=== PATIENT | male | born 1980 | race Caucasian/White ===

== ENCOUNTER 2024-04-01 14:20 | Outpatient (AMB) | payer OTHER, SELFPAY ==
--- NOTE | 2024-04-01 14:21 | A.OFFPC_ITS ---
Vital Signs 04/01/24 14:25 Height 5 ft 7 in Weight 137 lb 2 oz BMI 21.5 BP 100/62 Blood Pressure Location Lt brachial Position Sitting Pulse 63 Pulse Source Pulse Oximeter Pulse Oximetry (%) 94 Oxygen Delivery Method Room Air Intake Visit Reasons: [employer]ATH[employer]ER, requests counciling Intake Note: Patient is a new patient here to establish care for Anxiety, Depression, Insomnia, Knee pain, left hip pain, possible cardiac issue, right foot pain . Transferring care from Dr Ackerman ([facility]). Medical records have been requested and have received. Pathology Manager Required: No Inclusion Special Educator: Not Required per policy Accompanied by: Self / Same As Patient Allergies No Known Allergies Allergy (Verified 04/01/24 14:24) Tobacco use date assessed: 04/01/24 Dental Screening Dental Screen Date: 04/01/24 Did you have a dental visit in the last 12 months?: Yes Did you have a dental problem in the last 6 months where you did not have access to dental care?: No Was dental information given to patient?: Patient has dentist HPI [employer], requests counciling HPI Details 43 yr old male presents to the office to establish his care. He comes alone. Patient gives history of substance use disorder. He has been abusing benzo's, cocaine and other drugs from the street. Was in a rehab ([facility]) and was removed due to non compliance. Continues to be abusing drugs but now willing to seek help. Gives history of alcohol abuse also. Patient reports he has severe insomnia which often triggers the other responses. In addition patient is requesting testing for STI. Has had multiple partners. He has spider veins on his right upper leg that may need treatment. [facility] Medical History Endogenous depression Substance use disorder Onychomycosis Benzodiazepine dependence Benzodiazepine withdrawal Boil Opioid withdrawal Opioid dependence Nicotine dependence Anxiety and depression Cocaine use Anemia Insomnia Marijuana use Alcohol withdrawal seizure Alcohol withdrawal Alcohol dependence Surgical History No pertinent past surgical history Family History Other Mental health disorder Substance use disorder Social History Housing: Apartment Alcohol intake: current Alcohol intake frequency: a few times a month Patient Tobacco Use Status: Current everyday Tobacco user Tobacco use type: Cigarette Cigarette Packs Per Day: 0.5 Cigarettes Per Day: 10 e-Cigarette/Vaping Use: Never Used Second Hand Smoke Exposure: Yes service: No Current occupational status: unemployed Current occupational exposures/hazards: No Cognitive needs: No Hearing needs: No Vision needs: No Questionnaire PHQ-9 Over the last 2 weeks, how often have you been bothered by any of the following problems? 1. Little interest or pleasure in doing things: nearly every day 2. Feeling down, depressed, or hopeless: nearly every day 3. Trouble falling or staying asleep, or sleeping too much: nearly every day 4. Feeling tired or having little energy: nearly every day 5. Poor appetite or overeating: nearly every day 6. Feeling bad about yourself - or that you are a failure or have let yourself or your family down: more than half the days 7. Trouble concentrating on things, such as reading the newspaper or watching television: nearly every day 8. Moving or speaking so slowly that other people could have noticed. Or the opposite - being so fidgety or restless that you have been moving around a lot more than usual: more than half the days 9. Thoughts that you would be better off or of hurting yourself in some way: several days Total score: 23 Depression Screening Interpretation: Positive Depression Screening Done: Yes Source: Developed by Drs. Robi Barrios, Linda Lujan, Monty Arzola and colleagues, with an educational germán from [employer]. Thrive Questionnaire Date Thrive assessed: 04/01/24 I am a: Patient What is your living situation today?: I have a steady place to live Within the past 12 months, did the food you bought not last and you didn't have the money to get more?: Never true Within the past 12 months, did you worry whether your food would run out before you got money to buy more?: Never true Do you have trouble paying for medicines?: No Do you have trouble getting transportation to medical appointments?: No Do you have trouble paying your heating and electricity bill?: No Do you have trouble taking care of your child, family member or friend?: No Do you have trouble with day-to-day activities such as bathing, preparing meals, shopping, managing finances, etc.?: No Are you currently unemployed and looking for a job?: No Are you interested in more education?: No Currently or been in a relationship where the following occur: No concerns reported THRIVE Score: 0 AUDIT C Alcohol Use Questionnaire (AUDIT-C) 1. How often do you have a drink containing alcohol?: Never Total Score: 0 RENATO-7 AMB Questionnaire RENATO-7 Date RENATO - 7 assessed: 04/01/24 Feeling nervous, anxious, or on edge: 3 = Nearly every day Not being able to stop or control worryin = Nearly every day Worrying too much about different things: 3 = Nearly every day Trouble relaxin = Nearly every day Being so restless that it is hard to sit still: 3 = Nearly every day Becoming easily annoyed or irritable: 3 = Nearly every day Feeling afraid as if something awful might happen: 2 = More than half the days Total RENATO-7 score (0-4 normal; 5-9 mild; 10-14 moderate; 15-21 severe): 20 Source: Developed by Drs. Robi Barrios, Linda Lujan, Monty Arzola and colleagues, with an educational germán from [employer]. Physical exam (Primary Care) Vital Signs: Last Vital Signs Pulse 63 04/01/24 14:25 BP 100/62 04/01/24 14:25 Pulse Ox 94 04/01/24 14:25 Oxygen Delivery Method Room Air 04/01/24 14:25 BMI result Body Mass Index 21.5 Tobacco/Smoking Status: Tobacco use Status Tobacco use date assessed 04/01/24 04/01/24 14:37 Patient Tobacco Use Status Current everyday Tobacco 04/01/24 14:37 Tobacco use type Cigarette 04/01/24 14:37 e-Cigarette/Vaping Use Never Used 04/01/24 14:37 PHQ-9: PHQ-9 Score PHQ-9: Total score 23 04/01/24 14:37 Depression Screening Interpretation: Positive Thrive Assessment: Date of Thrive Assessment Date Thrive assessed 04/01/24 04/01/24 14:37 Currently or been in a relationship where the following occur: No concerns reported Const General: cooperative and healthy appearing Nutritional Appearance: well nourished Orientation/consciousness: patient oriented x3 Limitations: no limitations HENMT Head: Yes normal to inspection Eyes General: appearance normal, both eyes and all related structures Neck Neck: Yes normal visual inspection Chest Chest palpation & inspection: normal palpation of entire chest wall Resp Effort & Inspection: normal respiratory effort Neuro General: patient oriented x3 Assessment and Plan Assessment & Plan (1) Substance use disorder: Code(s): F1.90 - Other psychoactive substance use, unspecified, uncomplicated Plan: A [facility] to [facility]. Patient needs detox. After, I plan to send him to ps for evaluation of depression and insomnia. 20 minutes spent counselling the patient on the need to come clean. (2) Endogenous depression: Code(s): F33.2 - Major depressive disorder, recurrent severe without psychotic features Plan: Currently on no meds and does not see a therapist. Will start with detox before sending him for mental health evaluation. Orders: Orders Syphilis Screen Today - Other psychoactive substance use, unspecified, uncomplicated, F33.2 - Major depressive disorder, recurrent severe without psychotic features, Z11.3 - Encounter for screening for infections with a predominantly sexual mode of transmission Basic Metabolic Panel Today 90 - Other psychoactive substance use, unspecified, uncomplicated, F33.2 - Major depressive disorder, recurrent severe without psychotic features, Z11.3 - Encounter for screening for infections with a predominantly sexual mode of transmission Complete Blood Count no Diff Today 90 - Other psychoactive substance use, unspecified, uncomplicated, F33.2 - Major depressive disorder, recurrent severe without psychotic features, Z11.3 - Encounter for screening for infections with a predominantly sexual mode of transmission Lipid Panel Today 90 - Other psychoactive substance use, unspecified, uncomplicated, F33.2 - Major depressive disorder, recurrent severe without psychotic features, Z11.3 - Encounter for screening for infections with a predominantly sexual mode of transmission Liver Panel Today 90 - Other psychoactive substance use, unspecified, uncomplicated, F33.2 - Major depressive disorder, recurrent severe without psychotic features, Z11.3 - Encounter for screening for infections with a predominantly sexual mode of transmission Thyroid Stimulating Hormone Today - Other psychoactive substance use, unspecified, uncomplicated, F33.2 - Major depressive disorder, recurrent severe without psychotic features, Z11.3 - Encounter for screening for infections with a predominantly sexual mode of transmission UA and rflx microscopic Today F1 - Other psychoactive substance use, unspecified, uncomplicated, F33.2 - Major depressive disorder, recurrent severe without psychotic features, Z11.3 - Encounter for screening for infections with a predominantly sexual mode of transmission HIV Ab/Ag Today - Other psychoactive substance use, unspecified, uncomplicated, F33.2 - Major depressive disorder, recurrent severe without psychotic features, Z11.3 - Encounter for screening for infections with a predominantly sexual mode of transmission CT NG by PCR Today - Other psychoactive substance use, unspecified, uncomplicated, F33.2 - Major depressive disorder, recurrent severe without psychotic features, Z11.3 - Encounter for screening for infections with a predominantly sexual mode of transmission Referrals Addiction Medicine Referral - Other psychoactive substance use, unspecified, uncomplicated, F33.2 - Major depressive disorder, recurrent severe without psychotic features Coding Level of Care Code New Pt Level 4 (50918) Complex EM visit Add On G2211 Diagnoses Substance use disorder Endogenous depression F33.2
[2024-04-01 14:25] VITALS: BP 100/62; PULSE 63; O2SAT 94; BMI 21.5
== END 2024-04-01 15:46 | disposition home or self-care (01) ==
LOC: HO.HMGH 14:20
PROVIDERS: PCP Internal Medicine; Visit Provider Internal Medicine
DX: F19.90 Other psychoactive substance use, unspecified, uncomplicated (principal); F33.2 Major depressive disorder, recurrent severe without psychotic features
CPT/HCPCS: 99204; G2211

== ENCOUNTER 2024-06-07 12:19 | Emergency (ER) | payer OTHER, SELFPAY ==
[2024-06-07 12:22] VITALS: BP 122/64; PULSE 75; RESP 16; TEMP 35.9; O2SAT 94; BMI 27.4
--- NOTE | 2024-06-07 12:22 | ED_ITS ---
HPI - General Adult General Chief complaint: General Medical Stated complaint: medication Time Seen by Provider: 06/07/24 12:28 Source: patient Mode of arrival: ambulatory Limitations: no limitations History of Present Illness HPI narrative: Patient is a 43 year old male presenting to emergency department for evaluation. States he was discharged from [facility] yesterday, he states that he went to [facility] yesterday but it underwent a talking about . States he presented to [facility] today and was advised to come to emergency department as he is interested in starting Subutex took this about 2-3 years ago and has good success until he stopped it. He was last dosed with Methadone yesterday, uncertain of the dosing. Will attempt to verify his dosing, and refer to addiction medicine for assistance as he did not have care transferred anywhere even for methadone dosing he denies any recreational drug usage since his discharge yesterday. Related Data Home Medications ?Medication ?Instructions ?Recorded ?Confirmed No Known Home Meds 04/01/24 04/01/24 Allergies Allergy/AdvReac Type Severity Reaction Status Date / Time No Known Allergies Allergy Verified 06/07/24 12:25 Review of Systems Review of Systems: Yes all other systems are reviewed and are negative PMFSH Past Medical History Attestation statement: The following information was validated with the patient. Source: old records reviewed Medical History Endogenous depression Substance use disorder Onychomycosis Benzodiazepine dependence Benzodiazepine withdrawal Boil Opioid withdrawal Opioid dependence Nicotine dependence Anxiety and depression Cocaine use Anemia Insomnia Marijuana use Alcohol withdrawal seizure Alcohol withdrawal Alcohol dependence Surgical History No pertinent past surgical history Family History Family History Other Mental health disorder Substance use disorder Social History Social History Housing: Apartment Alcohol intake: current Alcohol intake frequency: a few times a month Patient Tobacco Use Status: Current everyday Tobacco user Tobacco use type: Cigarette Cigarette Packs Per Day: 0.5 Cigarettes Per Day: 10 e-Cigarette/Vaping Use: Never Used Second Hand Smoke Exposure: Yes Do you have a plan to hurt others: No Plan service: No Current occupational status: unemployed Current occupational exposures/hazards: No Cognitive needs: No Hearing needs: No Vision needs: No Physical Exam ED Vital Signs: Vital Signs - 24 hr 06/07/24 12:22 Temperature 96.6 F L Pulse Rate 75 Respiratory Rate 16 Blood Pressure 122/64 Pulse Oximetry 94 Oxygen Delivery Method Room Air BMI result Body Mass Index 27.4 Appearance: Alert.?Oriented to person, place and time. No acute distress.?Normal affect. Eyes: Pupils equal, round and reactive to light.? ENT: Pharynx normal.?? Neck: Normal inspection.? Neck supple.?? CVS: Heart sounds normal. Normal heart rate and rhythm.? Pulses normal.?? Respiratory: No respiratory distress.? Lung sounds clear to auscultation bilaterally?? Abdomen: Soft and non-tender. Normoactive bowel sounds. ?? Skin: Skin warm and dry.? Normal skin color.? .?? Extremities: No lower extremity edema.? No calf ttp? Neuro: Moves all extremities spontaneously. Sensation intact bilaterally. CN II- XII intact. No focal neuro deficits. Ambulates with normal steady gait. Course Course Course Narrative: Patient is a 43 year old male presenting to emergency department for evaluation. States he was discharged from detox [facility] yesterday, he states that he went to [facility] yesterday but it underwent a talking about . States he presented to [facility] today and was advised to come to emergency department as he is interested in starting Subutex took this about 2-3 years ago and has good success until he stopped it. He was last dosed with Methadone yesterday, uncertain of the dosing. Will attempt to verify his dosing, and refer to addiction medicine for assistance as he did not have care transferred anywhere even for methadone dosing he denies any recreational drug usage since his discharge yesterday. Reevaluation(s) Reevaluation #1: Patient not found in the emergency department. Left without completing treatment Time: 14:42 Medical Decision Making Medical Decision Making MDM Narrative: Patient is a 43 year old male with past medical history of substance use disorder presenting to emergency department requesting assistance. He was recently discharged from a detox facility in [place], [place] by his report. He states that he was not set up to establish care at a methadone clinic in this local area. He is highly interested in receiving Subutex injections. States that he has taken them in the past. He presented to [facility] today, and was advised to come to the emergency department to begin the Subutex injections. At this time plan to attempt to verify his most recent methadone dosing which by his account was at the detox facility yesterday. Plan to consult addiction medicine for assistance with establishing care possibly with a [facility] or local methadone clinics until he can see consultation for Subutex. He offers no physical complaints in his physical examination is benign. At this time he has been placed in physician observation pending methadone dosing in assistance with disposition Differential Diagnosis Differential Diagnoses: The differential diagnosis associated with the presentation includes (Substance use disorder,) Admission/Observation Consideration of admission/observation: Escalation of care including admission/observation considered (See narrative above; placed in physician observation at 12:33 on 06/07/2024) Consult Healthcare Provider Management of the patient was discussed with: Behavioral Health Provider Discharge Plan Discharge Clinical Impression: Substance use disorder Patient Disposition: Left W/O Completing Treatment Prescriptions: No Action No Known Home Meds Print Language: Macedonian
== END 2024-06-07 15:20 | disposition left against medical advice (07) ==
PROVIDERS: Emergency Provider Emergency Medicine
DX: F19.90 Other psychoactive substance use, unspecified, uncomplicated (principal); F11.20 Opioid dependence, uncomplicated; F17.210 Nicotine dependence, cigarettes, uncomplicated; F13.20 Sedative, hypnotic or anxiolytic dependence, uncomplicated
CPT/HCPCS: 99281

== ENCOUNTER 2024-07-27 15:16 | Emergency (ER) | payer OTHER, SELFPAY ==
--- NOTE | ~2024-07-27 | XR_ITS ---
EXAMINATION: XR CHEST CLINICAL INFORMATION: Cough COMPARISON: None available. TECHNIQUE: 2 views of the chest were obtained. FINDINGS: No significant abnormality is noted involving the heart, lungs, mediastinum, bony thorax or soft tissues. XR/XR chest 2V IMPRESSION: Unremarkable examination. Electronically signed by: Antonio Harper MD 07/27/2024 04:15 PM [facility] [place]
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
[2024-07-27 15:21] VITALS: BP 102/75; PULSE 82; RESP 18; TEMP 37.1; O2SAT 94; BMI 18.3
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
[2024-07-27 16:11] VITALS: BP 115/63; PULSE 72; RESP 16; TEMP 36.8; O2SAT 93
[2024-07-27 16:20] LABS: Influenza A PCR NEGATIVE (Negative); Influenza B PCR NEGATIVE (Negative); Resp Syncy Virus RNA Qual PCR NEGATIVE (Negative); SARS COV2 PCR INHOUSE NEGATIVE (Negative)
[2024-07-27] MEDS: Ibuprofen 800 MG TABLET PO (16:39)
[2024-07-27 18:13] VITALS: BP 115/63; PULSE 72; RESP 16; TEMP 36.8; O2SAT 93
== END 2024-07-27 18:14 | disposition home or self-care (01) ==
PROVIDERS: Physician Assistant Medical; Emergency Provider Emergency Medicine Emergency Medical Services; PCP Internal Medicine
DX: S46.911A Strain of unspecified muscle, fascia and tendon at shoulder and upper arm level, right arm, initial encounter (principal); R05.9 Cough, unspecified; M25.511 Pain in right shoulder; F17.210 Nicotine dependence, cigarettes, uncomplicated; J40 Bronchitis, not specified as acute or chronic; V43.62XA Car passenger injured in collision with other type car in traffic accident, initial encounter; Y93.89 Activity, other specified; Y92.488 Other paved roadways as the place of occurrence of the external cause; Y99.8 Other external cause status; Z03.818 Encounter for observation for suspected exposure to other biological agents ruled out
CPT/HCPCS: 0241U; 71046; 73030; 99283

== ENCOUNTER 2024-08-28 14:57 | Outpatient (AMB) | payer OTHER, SELFPAY ==
--- NOTE | 2024-08-28 14:55 | MHC.AM.SUB ---
Intake Visit Reasons: Intake Allergies No Known Allergies Allergy (Verified 07/27/24 15:23) HPI HPI Intake: Details: Patient presents for evaluation and treatment of opioid use disorder He states he was recently inpatient at [facility] for about a week and was on a methadone taper He reports he was discharged from [facility] on 08/19 and plan was to present to [facility] on , however was a Holiday. He states that he has missed intakes due to sleeping in and presents today today to discuss options He states his last opiate use heroin/fentanyl use was 2 days ago and yesterday was able to get methadone 20mg which helped manage withdrawal and anxiety. Prior to entering treatment at [facility] he reports using 2 bundles of fentanyl IN daily Denies any history of IVDU one overdose requiring narcan Denies any current alcohol use, but chart review show history of AW seizures Benzo use -denies current use He denies any history of MOUD aside from detox protocols In May he was planning to get Sublocade, but there was an issue with communication between 2 facilities and ultimately did not get it. Numerous [facility] admissions Medical History: Obtained from chart review Labs from 11/2023 [facility] no documented history of HIV or hepatitis screens found were ordered by PCP at last visit in March, still need to be drawn No current daily medications During visit patient informed of different options, including continuation of methadone if he found that beneficial He stated that he felt this may be the place to start for him, but does not wish to wait until next week to be able to start I do not want to because of drugs, I have daughters, I want to change . T/w informed patient that he can present to [facility] for an intake and be started on methadone. He is aware busses are free and verbalized that he would present there in the morning Review of Systems Const Reports difficulty sleeping, Reports lethargy and Reports malaise Psych Reports anxiety Physical Exam Const General: cooperative and well groomed Nutritional Appearance: average body habitus Orientation/consciousness: patient oriented x3 Limitations: no limitations Neuro General: patient oriented x3 Psych Appearance: well kempt Speech and movement: Clear speech present Affect: normal affect Attitude: cooperative Thought process: Normal thought process present Thought content: Normal thought content present Insight: Good insight present (Psych) Judgement: Good judgement present (Psych) Results AMB 14 Panel Urine Drug Screen Urine Marijuana (THC) Positive Last Edit by Lauren Burger RN on 08/28/24 16:12 Urine Cocaine Negative Last Edit by Lauren Burger RN on 08/28/24 16:12 Urine Morphine Positive Last Edit by Lauren Burger RN on 08/28/24 16:12 Urine Methamphetamine Last Edit by Lauren Burger RN on 08/28/24 16:12 Urine Amphetamine Negative Last Edit by Lauren Burger RN on 08/28/24 16:12 Urine Benzodiazepine Negative Last Edit by Lauren Burger RN on 08/28/24 16:12 Urine Barbiturates Positive Last Edit by Lauren Burger RN on 08/28/24 16:12 Urine Methadone Positive Last Edit by Lauren Burger RN on 08/28/24 16:12 Urine Buprenorphine Negative Last Edit by Lauren Burger RN on 08/28/24 16:12 Urine Tricyclic Antidepressant Positive Last Edit by Laruen Burger RN on 08/28/24 16:12 Urine MDMA Negative Last Edit by Lauren Burger RN on 08/28/24 16:12 Urine Oxycodone Negative Last Edit by Lauren Burger RN on 08/28/24 16:12 Urine Phencyclidine Negative Last Edit by Lauren Burger RN on 08/28/24 16:12 Urine Propoxyphene Negative Last Edit by Lauren Burger RN on 08/28/24 16:12 Assessment & Plan Assessment & Plan (1) Opioid use disorder, severe, dependence: Code(s): F11.20 - Opioid dependence, uncomplicated Category: Medical Plan: referral to for OUD treatment --methadone patient verbalized permission to send note and demographics plans to present on 12/6 in AM declined narcan states he has some at home Orders: Orders AMB 14 Panel Urine Drug Screen Today Z51.81 - Encounter for therapeutic drug level monitoring [facility] Medical History Endogenous depression Substance use disorder Onychomycosis Benzodiazepine dependence Benzodiazepine withdrawal Boil Opioid withdrawal Opioid dependence Nicotine dependence Anxiety and depression Cocaine use Anemia Insomnia Marijuana use Alcohol withdrawal seizure Alcohol withdrawal Alcohol dependence Surgical History No pertinent past surgical history Family History Other Mental health disorder Substance use disorder Social History Housing: Apartment Alcohol intake: current Alcohol intake frequency: a few times a month Patient Tobacco Use Status: Current everyday Tobacco user Tobacco use type: Cigarette Cigarette Packs Per Day: 0.5 Cigarettes Per Day: 10 e-Cigarette/Vaping Use: Never Used Second Hand Smoke Exposure: Yes service: No Current occupational status: unemployed Current occupational exposures/hazards: No Cognitive needs: No Hearing needs: No Vision needs: No
== END 2024-08-28 15:44 | disposition home or self-care (01) ==
PROVIDERS: PCP Internal Medicine; Visit Provider Nurse Practitioner Psychiatric/Mental Health
DX: F11.20 Opioid dependence, uncomplicated (principal); Z51.81 Encounter for therapeutic drug level monitoring
CPT/HCPCS: 99213

== ENCOUNTER → 2024-08-28 14:57 | Outpatient (BNVA) | payer OTHER, SELFPAY | PROVIDERS: PCP Internal Medicine; Visit Provider Nurse Practitioner Psychiatric/Mental Health | DX: F11.20 Opioid dependence, uncomplicated (principal); Z51.81 Encounter for therapeutic drug level monitoring | CPT/HCPCS: 80307; 99212 ==

== ENCOUNTER 2024-10-02 14:05 | Outpatient (AMB) | payer OTHER, SELFPAY ==
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
[2024-10-02 14:19] VITALS: BP 130/64; PULSE 61; O2SAT 96; BMI 22.5
== END 2024-10-02 14:46 | disposition home or self-care (01) ==
PROVIDERS: PCP Internal Medicine; Visit Provider Internal Medicine
DX: F33.2 Major depressive disorder, recurrent severe without psychotic features (principal); F11.20 Opioid dependence, uncomplicated

== ENCOUNTER → 2024-10-02 14:05 | Outpatient (BNVA) | payer OTHER, SELFPAY | PROVIDERS: PCP Internal Medicine; Visit Provider Internal Medicine | DX: F33.2 Major depressive disorder, recurrent severe without psychotic features (principal); F11.20 Opioid dependence, uncomplicated | CPT/HCPCS: 96127; 99212 ==

== ENCOUNTER 2025-03-04 13:44 | Emergency (ER) | payer OTHER, SELFPAY ==
[2025-03-04 14:29] VITALS: BP 100/52; PULSE 50; RESP 18; TEMP 36.6; O2SAT 94; BMI 20.6
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
== END 2025-03-04 21:45 | disposition left against medical advice (07) ==
PROVIDERS: Emergency Provider Emergency Medicine
DX: Z04.1 Encounter for examination and observation following transport accident (principal); G89.11 Acute pain due to trauma; M54.50 Low back pain, unspecified; M54.2 Cervicalgia
CPT/HCPCS: 99281

== ENCOUNTER 2025-04-29 10:02 | Outpatient (AMB) | payer OTHER, SELFPAY ==
--- NOTE | 2025-04-29 10:13 | MHC.PC.OV ---
Vital Signs 04/29/25 10:15 Height 5 ft 7 in Weight 142 lb 8 oz BMI 22.3 BP 110/58 L Blood Pressure Location Lt brachial Position Sitting Pulse 58 Pulse Source Pulse Oximeter Temp 97.3 F Temp Source Temporal Artery Scan Pulse Oximetry (%) 99 Oxygen Delivery Method Room Air Intake Visit Reasons: annual exam - see comments Intake Note: Patient is here today for a physical. 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 Patient has history of substance use disorder. He has been sober for 2 months. Patient is not taking Sublocade which was discussed in the previous visit. Currently on methadone 40 mg a day. [facility] Medical History Endogenous depression Substance use disorder Onychomycosis Benzodiazepine dependence Benzodiazepine withdrawal Boil Opioid withdrawal Opioid dependence Nicotine dependence Anxiety and depression Cocaine use Anemia Insomnia Marijuana use Alcohol withdrawal seizure Alcohol withdrawal Alcohol dependence Surgical History No pertinent past surgical history Family History Other Mental health disorder Substance use disorder Social History Housing: Apartment Alcohol intake: current Alcohol intake frequency: a few times a month Patient Tobacco Use Status: Current everyday Tobacco user Tobacco use type: Cigarette Cigarette Packs Per Day: 0.5 Cigarettes Per Day: 5 e-Cigarette/Vaping Use: Never Used Second Hand Smoke Exposure: Yes service: No Current occupational status: unemployed Current occupational exposures/hazards: No Cognitive needs: No Hearing needs: No Vision needs: No Questionnaire PHQ-9 Over the last 2 weeks, how often have you been bothered by any of the following problems? 1. Little interest or pleasure in doing things: nearly every day 2. Feeling down, depressed, or hopeless: nearly every day 3. Trouble falling or staying asleep, or sleeping too much: nearly every day 4. Feeling tired or having little energy: nearly every day 5. Poor appetite or overeating: several days 6. Feeling bad about yourself - or that you are a failure or have let yourself or your family down: more than half the days 7. Trouble concentrating on things, such as reading the newspaper or watching television: nearly every day 8. Moving or speaking so slowly that other people could have noticed. Or the opposite - being so fidgety or restless that you have been moving around a lot more than usual: several days 9. Thoughts that you would be better off or of hurting yourself in some way: several days Total score: 20 Depression Screening Interpretation: Positive Depression Screening Done: Yes Source: Developed by Drs. Robi Barrios, Linda Lujan, Monty Arzola and colleagues, with an educational germán from [employer]. Thrive Questionnaire Date Thrive assessed: 04/29/25 I am a: Patient What is your living situation today?: I have a place to live, but I am worried about losing it in the future Within the past 12 months, did the food you bought not last and you didn't have the money to get more?: Sometimes True Within the past 12 months, did you worry whether your food would run out before you got money to buy more?: Sometimes True Do you have trouble paying for medicines?: No Do you have trouble getting transportation to medical appointments?: Yes Do you have trouble paying your heating and electricity bill?: No Do you have trouble taking care of your child, family member or friend?: No Do you have trouble with day-to-day activities such as bathing, preparing meals, shopping, managing finances, etc.?: I choose not to answer this question Are you currently unemployed and looking for a job?: Yes Are you interested in more education?: I choose not to answer this question Please select the resources that you would like help with: Transportation, Daily support and Job search/training Currently or been in a relationship where the following occur: I choose not to answer THRIVE Score: 4 AUDIT C Alcohol Use Questionnaire (AUDIT-C) 1. How often do you have a drink containing alcohol?: Monthly or less 2. How many drinks containing alcohol do you have on a typical day when you are drinking?: 1 or 2 3. How often do you have six or more drinks on one occasion?: Never Total Score: 1 RENATO-7 AMB Questionnaire RENATO-7 Date RENATO - 7 assessed: 04/29/25 Feeling nervous, anxious, or on edge: 3 = Nearly every day Not being able to stop or control worryin = Nearly every day Worrying too much about different things: 2 = More than half the days Trouble relaxin = Nearly every day Being so restless that it is hard to sit still: 2 = More than half the days Becoming easily annoyed or irritable: 2 = More than half the days Feeling afraid as if something awful might happen: 2 = More than half the days Total RENATO-7 score (0-4 normal; 5-9 mild; 10-14 moderate; 15-21 severe): 17 Source: Developed by Drs. Robi Barrios, Linda Lujan, Monty Arzola and colleagues, with an educational germán from [employer]. Physical exam (Primary Care) Vital Signs: Last Vital Signs Temp 97.3 F 04/29/25 10:15 Pulse 58 04/29/25 10:15 BP 110/58 L 04/29/25 10:15 Pulse Ox 99 04/29/25 10:15 Oxygen Delivery Method Room Air 04/29/25 10:15 BMI result Body Mass Index 22.3 Tobacco/Smoking Status: Tobacco use Status Tobacco use date assessed 04/29/25 04/29/25 10:21 Patient Tobacco Use Status Current everyday Tobacco 04/29/25 10:21 Tobacco use type Cigarette 04/29/25 10:21 e-Cigarette/Vaping Use Never Used 04/29/25 10:21 PHQ-9: PHQ-9 Score PHQ-9: Total score 20 04/29/25 10:21 Depression Screening Interpretation: Positive Thrive Assessment: Date of Thrive Assessment Date Thrive assessed 04/29/25 04/29/25 10:21 Currently or been in a relationship where the following occur: I choose not to answer Const General: cooperative and healthy appearing Nutritional Appearance: well nourished Orientation/consciousness: patient oriented x3 Limitations: no limitations HENMT Head: Yes normal to inspection Eyes General: appearance normal, both eyes and all related structures Neck Neck: Yes normal visual inspection Chest Chest palpation & inspection: normal palpation of entire chest wall Resp Effort & Inspection: normal respiratory effort Neuro General: patient oriented x3 Coding Level of Care Code Est Pt Prev Care 40-64y(22466) Diagnoses 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 Patient was congratulated on his abstinence from substance use. (2) Annual physical exam: Code(s): Z00.00 - Encounter for general adult medical examination without abnormal findings Plan: Blood work has been ordered. Patient's prescriptions have been ordered. Cologuard ordered. Orders: Orders Basic Metabolic Panel Today F33.2 - Major depressive disorder, recurrent severe without psychotic features Liver Panel Today F33.2 - Major depressive disorder, recurrent severe without psychotic features Thyroid Stimulating Hormone Today F33.2 - Major depressive disorder, recurrent severe without psychotic features UA and rflx microscopic Today F33.2 - Major depressive disorder, recurrent severe without psychotic features Complete Blood Count no Diff Today F33.2 - Major depressive disorder, recurrent severe without psychotic features Lipid Panel Today F33.2 - Major depressive disorder, recurrent severe without psychotic features Medications: Refilled naproxen 500 mg PO BID PRN 14 tabs 0RF pain 7 days albuterol sulfate 90 mcg/actuation 2 puffs inhalation Q4-6H PRN 8.5 grams 0RF shortness of breath or wheezing quetiapine (Seroquel) 100 mg PO BEDTIME 90 tabs 1RF
[2025-04-29 10:15] VITALS: BP 110/58; PULSE 58; TEMP 36.3; O2SAT 99; BMI 22.3
--- OUTSIDE RECORDS SUMMARY | 2025-04-29 10:35 | XMS_ITS | Patient Health Record ---
Author Organization [facility] Address [address], [place] [id number] Care Team Providers Care Bath Mixer Name Role Phone NO, PCP Primary Care Provider Johanne Connor Unavailable [phone] Reason For Referral No Information Plan Of Treatment No Information Insurance Providers Payer Name Payer Address Payer Phone Subscriber Number Group Number Insured Name Patient Relationship to Insured Coverage Start Date Coverage End Date Insurance Pending [address] [place] [address] Dallin Cortez Self - patient is the insured
--- OUTSIDE RECORDS SUMMARY | 2025-04-29 10:35 | XMS_ITS | Encounter Summary ---
Author Organization [facility] Address [address] [place] [address] Care Team Providers Care Polish Compounder Name Role Phone Tiff Naidu MD Primary Care Provider Encounter Details Date Type Department Care Team (Late st Contact Info) Description 09/11/2024 Lab Requisition [facility] - Main Lab [address] [facility] [place] [id number] Tiff Naidu MD [address] [place] [address] Opioid dependence, uncomplicated (CMS/HCC V24, CMS/HCC V28) Social History Tobacco Use Types Packs/Day Years Used Date Smoking Tobacco: Never Assessed Sex and Gender Information Value Date Recorded Sex Assigned at Not on file Legal Sex Male 11:45 PM EST Gender Identity Not on file Sexual Orientation Not on file documented as of this encounter Plan of Treatment Not on file documented as of this encounter Procedures Procedure Name Priority Date/Time Associated Diagnosis Comments HEPATITIS C ANTIBODY Routine 09/11/2024 10:00 AM EST Opioid dependence, uncomplicated (CMS/HCC) HIV 1, 2 ANTIBODY, P24 ANTIGEN WITH REFLEX TO DIFFERENTIATION Routine 09/11/2024 10:00 AM EST Opioid dependence, uncomplicated (CMS/HCC) HEPATITIS B SURFACE ANTIGEN WITH CONFIRMATION Routine 09/11/2024 10:00 AM EST Opioid dependence, uncomplicated (CMS/HCC) TREPONEMA PALLIDUM ANTIBODY WITH REFLEX TO RPR AND PARTICLE AGGLUTINATION Routine 09/11/2024 10:00 AM EST Opioid dependence, uncomplicated (CMS/HCC) HEPATITIS A ANTIBODY TOTAL WITH REFLEX IGM Routine 09/11/2024 10:00 AM EST Opioid dependence, uncomplicated (CMS/HCC) HEPATITIS A ANTIBODY IGM Routine 09/11/2024 10:00 AM EST Opioid dependence, uncomplicated (CMS/HCC) HEPATITIS B CORE ANTIBODY, TOTAL Routine 09/11/2024 10:00 AM EST Opioid dependence, uncomplicated (CMS/HCC) HEPATITIS B SURFACE ANTIBODY Routine 09/11/2024 10:00 AM EST Opioid dependence, uncomplicated (CMS/HCC) COMPLETE BLOOD COUNT Routine 09/11/2024 10:00 AM EST Opioid dependence, uncomplicated (CMS/HCC) COMPREHENSIVE METABOLIC PANEL Routine 09/11/2024 10:00 AM EST Opioid dependence, uncomplicated (CMS/HCC) documented in this encounter Results * Hepatitis B surface antigen with reflex to confirmation (09/11/2024 10:00 AM EST) Hepatitis B Surface Ag Negative Negative LAB CHEMISTRY METHOD 09/12/2024 12:56 PM EST [facility] Blood Venous blood specimen / Unknown 09/11/2024 10:00 AM EST 09/11/2024 3:44 PM EST Narrative [facility] - 09/12/2024 12:56 PM EST Over the counter supplements containing high doses of biotin may interfere with this assay. If interference is suspected, patients shoud be retested after refraining from biotin supplements for 72 hours. us Tiff Naidu MD LAB BLOOD ORDERABLES Fi nal Result [facility] [address] [place] [address], * Hepatitis B core antibody, total (09/11/2024 10:00 AM EST) [facility] Hep B Core Total Ab Negative Negative LAB CHEMISTRY METHOD 09/11/2024 6:31 PM EST [facility] Blood Venous blood specimen / Unknown 09/11/2024 10:00 AM EST 09/11/2024 3:44 PM EST Tiff Naidu MD LAB BLOOD ORDERABLES Fi nal Result Performing Organization Address [facility] Co de Phone Number [facility] [address] [place] [address], [place] [phone] * Hepatitis A antibody IgM (09/11/2024 10:00 AM EST) [facility] Hepatitis A Antibody IgM Negative Negative LAB CHEMISTRY METHOD 09/11/2024 6:02 PM EST [facility] Blood Venous blood specimen / Unknown 09/11/2024 10:00 AM EST 09/11/2024 3:44 PM EST Narrative [facility] - 09/11/2024 6:02 PM EST Over the counter supplements containing high doses of biotin may interfere with this assay. If interference is suspected, patients shoud be retested after refraining from biotin supplements for 72 hours. Tiff Naidu MD LAB BLOOD ORDERABLES Fi nal Result Performing Organization Address City/[facility]/ZIP Co de Phone Number [facility] [address] [place] [address], [place] [phone] * (ABNORMAL) Hepatitis A antibody total with reflex IgM (09/11/2024 10:00 AM EST) [facility] Hep A Total Ab Positive( A) Negative LAB CHEMISTRY METHOD 09/11/2024 4:55 PM EST [facility] Blood Venous blood specimen / Unknown 09/11/2024 10:00 AM EST 09/11/2024 3:44 PM EST Narrative [facility] - 09/11/2024 4:55 PM EST Over the counter supplements containing high doses of biotin may interfere with this assay. If interference is suspected, patients shoud be retested after refraining from biotin supplements for 72 hours. Tiff Naidu MD LAB BLOOD ORDERABLES Fi nal Result Performing Organization Address [facility] de Phone Number [facility] [address] [place] [address], [place] [phone] * HIV 1,2 antibody, p24 antigen with reflex to differentiation (09/11/2024 10:00 AM EST) Pathologist [facility] HIV Combo AB/AG Negative Negative LAB CHEMISTRY METHOD 09/11/2024 4:49 PM EST [facility] Blood Venous blood specimen / Unknown 09/11/2024 10:00 AM EST 09/11/2024 3:44 PM EST Narrative [facility] - 09/11/2024 4:49 PM EST This assay is a 4th generation assay allowing for earlier detection of HIV infection by detecting the presence of the HIV-1 p24 antigen as well as the traditional antibodies to HIV type 1 (including group O) and type 2. Use of a 4th generation assay is the current CDC recommendation for HIV screening. Tiff Naidu MD LAB BLOOD ORDERABLES Fi nal Result Performing Organization Address [facility] Co de Phone Number [facility] [address] [place] [address], [place] [phone] * Hepatitis C antibody (09/11/2024 10:00 AM EST) Pathologist [facility] Hepatitis C Antibody Negative Negative LAB CHEMISTRY METHOD 09/11/2024 4:49 PM EST [facility] Blood Venous blood specimen / Unknown 09/11/2024 10:00 AM EST 09/11/2024 3:44 PM EST Tiff Naidu MD LAB BLOOD ORDERABLES Fi nal Result Performing Organization Address City/[facility]/ZIP Co de Phone Number [facility] [address] [place] [address], [place] [phone] * Hepatitis B surface antibody (09/11/2024 10:00 AM EST) Hepatitis B Surface Ab Negative Negative LAB CHEMISTRY METHOD 09/11/2024 4:10 PM EST [facility] Hepatitis B Surface Ab Quantitative <3.1 mIU/mL LAB CHEMISTRY METHOD 09/11/2024 4:10 PM EST [facility] Blood Venous blood specimen / Unknown 09/11/2024 10:00 AM EST 09/11/2024 3:44 PM EST Narrative [facility] - 09/11/2024 4:10 PM EST >=10 mIU/mL is considered to be consistent with immunity. Tiff Naidu MD LAB BLOOD ORDERABLES Fi nal Result Performing Organization Address [facility] Co de Phone Number [facility] [address] [place] [address], [place] [phone] * Treponema pallidum antibody with reflex to RPR and particle agglutination (09/11/2024 10:00 AM EST) T. Pallidum Antibodies Negative Negative LAB CHEMISTRY METHOD 09/11/2024 4:20 PM EST [facility] Blood Venous blood specimen / Unknown 09/11/2024 10:00 AM EST 09/11/2024 3:44 PM EST Tiff Naidu MD LAB BLOOD ORDERABLES Fi nal Result Performing Organization Address City/[facility]/ZIP Co de Phone Number [facility] [address] [place] [address], [place] [phone] * (ABNORMAL) Comprehensive metabolic panel (09/11/2024 10:00 AM EST) Sodium 143 133 - 145 mmol/L LAB CHEMISTRY METHOD 09/11/2024 4:01 PM [facility] Potassium 4.9 3.5 - 5.5 mmol/L LAB CHEMISTRY METHOD 09/11/2024 4:01 PM [facility] Chloride 110 96 - 110 mmol/L LAB CHEMISTRY METHOD 09/11/2024 4:01 PM [facility] CO2 30 21 - 32 mmol/L LAB CHEMISTRY METHOD 09/11/2024 4:01 PM [facility] Anion Gap 3 3 - 11 LAB CHEMISTRY METHOD 09/11/2024 4:01 PM [facility] Glucose 82 70 - 100 mg/dL LAB CHEMISTRY METHOD 09/11/2024 4:01 PM [facility] BUN 12 5 - 25 mg/dL LAB CHEMISTRY METHOD 09/11/2024 4:01 PM [facility] Creatinine 0.77 0.70 - 1.30 mg/dL LAB CHEMISTRY METHOD 09/11/2024 4:01 PM [facility] eGFR 113 >=60 mL/min/1. 73m2 LAB CHEMISTRY METHOD 09/11/2024 4:01 PM [facility] Comment:Calculation based on the Chronic Kidney Disease Epidemiology Collaboration (CKD-EPI) equation refit without adjustment for race. BUN/Creatinine Ratio 15.6 LAB CHEMISTRY METHOD 09/11/2024 4:01 PM [facility] Calcium 8.9 8.5 - 10.5 mg/dL LAB CHEMISTRY METHOD 09/11/2024 4:01 PM [facility] AST (SGOT) 19 10 - 42 unit/L LAB CHEMISTRY METHOD 09/11/2024 4:01 PM [facility] ALT (SGPT) 16 10 - 60 unit/L LAB CHEMISTRY METHOD 09/11/2024 4:01 PM [facility] Alkaline Phosphatase 55 42 - 121 unit/L LAB CHEMISTRY METHOD 09/11/2024 4:01 PM [facility] Total Protein 6.2 6.0 - 8.0 g/dL LAB CHEMISTRY METHOD 09/11/2024 4:01 PM [facility] Albumin 3.1(L) 3.2 - 5.0 g/dL LAB CHEMISTRY METHOD 09/11/2024 4:01 PM [facility] Total Bilirubin 0.2 0.0 - 1.4 mg/dL LAB CHEMISTRY METHOD 09/11/2024 4:01 PM [facility] Blood Venous blood specimen / Unknown 09/11/2024 10:00 AM EST 09/11/2024 3:44 PM EST Tiff Naidu MD LAB BLOOD ORDERABLES nal Result [facility] [address] [place] [address], * (ABNORMAL) Complete blood count (09/11/2024 10:00 AM EST) WBC 7.5 4.8 - 10.8 K/mcL LAB HEMETOLOGY METHOD 09/11/2024 4:04 PM [facility] RBC 4.70 4.50 - 5.50 M/mcL LAB HEMETOLOGY METHOD 09/11/2024 4:04 PM [facility] Hemoglobin 13.7 13.5 - 17.5 g/dL LAB HEMETOLOGY METHOD 09/11/2024 4:04 PM [facility] Hematocrit 44.2 42.0 - 54.0 % LAB HEMETOLOGY METHOD 09/11/2024 4:04 PM [facility] MCV 94.4 79.0 - 98.0 FL LAB HEMETOLOGY METHOD 09/11/2024 4:04 PM [facility] MCH 29.3 27.0 - 32.0 pcg LAB HEMETOLOGY METHOD 09/11/2024 4:04 PM [facility] MCHC 31.0(L) 32.0 - 37.0 g/dL LAB HEMETOLOGY METHOD 09/11/2024 4:04 PM [facility] RDW 15.3(H) 11.0 - 15.0 % LAB HEMETOLOGY METHOD 09/11/2024 4:04 PM [facility] Platelets 350 130 - 400 K/mcL LAB HEMETOLOGY METHOD 09/11/2024 4:04 PM [facility] MPV 10.8 7.0 - 11.0 FL LAB HEMETOLOGY METHOD 09/11/2024 4:04 PM [facility] NRBC 0.0 <1.0 % LAB HEMETOLOGY METHOD 09/11/2024 4:04 PM [facility] NRBC Absolute 0.00 <0.10 K/mcL LAB HEMETOLOGY METHOD 09/11/2024 4:04 PM [facility] Blood Venous blood specimen / Unknown 09/11/2024 10:00 AM EST 09/11/2024 3:44 PM EST us Tiff Naidu MD LAB BLOOD ORDERABLES Fi nal Result [facility] [address] [place] [address], documented in this encounter Visit Diagnoses Diagnosis Opioid dependence, uncomplicated (CMS/HCC V24, CMS/HCC V28) documented in this encounter Care Teams Polish Compounder Relationship Specialty Start Date End Date Tiff Naidu MD [address] [place] [id number] PCP - General Internal Medicine 10/17/24 documented as of this encounter
== END 2025-04-29 16:08 | disposition home or self-care (01) ==
LOC: HO.HMCH 10:03
PROVIDERS: PCP Internal Medicine; Visit Provider Internal Medicine
DX: F33.2 Major depressive disorder, recurrent severe without psychotic features (principal); Z00.00 Encounter for general adult medical examination without abnormal findings

== ENCOUNTER → 2025-04-29 10:02 | Outpatient (BNVA) | payer OTHER, SELFPAY | PROVIDERS: PCP Internal Medicine; Visit Provider Internal Medicine | DX: Z00.00 Encounter for general adult medical examination without abnormal findings (principal); F33.2 Major depressive disorder, recurrent severe without psychotic features | CPT/HCPCS: 99396 ==